=== PATIENT | male | born 1985 ===

== ENCOUNTER 2018-02-22 07:25 | Day surgery (SDC) | payer OTHER | END 2018-02-22 12:25 | disposition home or self-care (01) | LOC: AMB-ENDOS 07:25 | DX: K58.8 Other irritable bowel syndrome (principal) ==

== ENCOUNTER 2022-11-16 06:00 | Day surgery (SDC) | payer OTHER ==
[~2022-11-16] VITALS: Ht 172.7 cm; Wt 96.2 kg
== END 2022-11-16 21:40 | disposition home or self-care (01) ==
LOC: CIR.AMB 06:00
PROVIDERS: ATTEND Colon & Rectal Surgery
DX: K64.8 Other hemorrhoids (principal); K64.5 Perianal venous thrombosis; K64.2 Third degree hemorrhoids; K64.1 Second degree hemorrhoids; Z88.6 Allergy status to analgesic agent

== ENCOUNTER 2022-11-17 16:44 | Emergency (ER) | payer OTHER ==
[~2022-11-17] VITALS: Ht 172.7 cm; Wt 96.2 kg
== END 2022-11-17 22:41 | disposition home or self-care (01) ==
LOC: ER 16:44
DX: R33.8 Other retention of urine (principal); N39.0 Urinary tract infection, site not specified; Z88.6 Allergy status to analgesic agent

== ENCOUNTER 2022-11-22 14:01 | Emergency (ER) | payer OTHER ==
[~2022-11-22] VITALS: Ht 172.7 cm; Wt 94.3 kg
== END 2022-11-22 18:02 | disposition home or self-care (01) ==
LOC: ER 14:01
DX: R33.9 Retention of urine, unspecified (principal)